=== PATIENT | male | born 1945 ===

== ENCOUNTER 2017-10-25 11:24 | Emergency (ER) | payer OTHER, MEDICARE ==
[2017-10-25 12:18] VITALS: BP 152/65; PULSE 67; TEMP 97.4; O2SAT 98
[2017-10-25 12:19] VITALS: BMI 27.9
--- NOTE | 2017-10-25 12:57 | ED PDOC ---
Lower Extremity Pain/Injury Time Seen by Provider: 10/25/17 12:29 Chief Complaint (Nursing): Trauma Chief Complaint (Provider): foot injury History Per: Patient History/Exam Limitations: no limitations Onset/Duration Of Symptoms: Days (10/22/17) Current Symptoms Are (Timing): Still Present Severity: Mild Pain Scale Rating Of: 7 Additional Complaint(s): 72 year old male presents to the ED for an evaluation of his left foot. Patient states he sustained an injury at work on October 22. Reports a pallet fell on his foot. He went to [facility] and they performed a xray which was negative. They were concerned he had compartment syndrome and patient was advised to visit the ED. He went to [facility] but was not evaluated so he came here today. Reports the pain is 7/10 and feels mild numbness on 3rd, 4th, 5th toes. Denies any other injuries or decreased range of motion. PMD: Non H Provider Past Medical History Reviewed: Historical Data, Nursing Documentation, Vital Signs Vital Signs: Last Vital Signs Temp 97.4 F L 10/25/17 12:17 Pulse 67 10/25/17 12:17 Resp BP 152/65 H 10/25/17 12:17 Pulse Ox 98 10/25/17 12:17 - Medical History PMH: Fractures (LEFT ANKLE WITH FIXATION) - Surgical History Surgical History: No Surg Hx - Family History Family History: States: Unknown Family Hx - Immunization History Hx Tetanus Toxoid Vaccination: No Hx Influenza Vaccination: Yes ("June 2016") Hx Pneumococcal Vaccination: No ("Unsure'') - Home Medications Home Medications: Ambulatory Orders Medication Instructions Recorded GlipiZIDE [Glucotrol] 10 mg PO DAILY 08/08/16 MetFORMIN [glucoPHAGE] 1,000 mg PO BID 08/08/16 Pioglitazone [Actos] 30 mg PO DAILY 08/08/16 levoFLOXacin [Levaquin] 500 mg PO DAILY #7 tab 08/16/16 - Allergies Allergies/Adverse Reactions: Allergies Allergy/AdvReac Type Severity Reaction Status Date / Time No Known Allergies Allergy Unverified 08/08/16 08:26 Review of Systems ROS Statement: Except As Marked, All Systems Reviewed And Found Negative Musculoskeletal: Positive for: Foot Pain (left; mild numbness on 3rd, 4th, 5th toes). Negative for: Other (decreased ROM, injuries) Physical Exam - Reviewed Nursing Documentation Reviewed: Yes Vital Signs Reviewed: Yes - Physical Exam Comments: GENERAL APPEARANCE: Patient is awake, alert, oriented x 3, in no acute distress. SKIN: Warm, dry; (-) cyanosis. LOWER EXTREMITY: (+) mild tenderness to palpation to the distal aspect of the 3rd, 4th, and 5th metatarsals. (+) Capillary refill less than 2 seconds. (+) sensation to the entire foot and all toes intact. (-) Swelling, (-) ecchymosis, (+) full range of motion. Ankle: (-) swelling, (-) tenderness, (+) full range of motion. Achilles tendon intact and nontender. CARDIOVASCULAR: (+) distal pulse 2+. NEUROLOGIC: (+) distal sensation. - ECG O2 Sat by Pulse Oximetry: 98 (RA) Pulse Ox Interpretation: Normal Medical Decision Making Medical Decision Making: Time: 1233 Initial Impression: left foot injury Initial Plan: --Acetaminophen 975mg PO --Foot Left 3 Views Routine [RAD] XR L foot: (+) fracture to the 4th and possibly 5th proximal phalanx, no dislocation, as read by PA. Diagnostic results discussed with the patient in great detail. Diagnosis of foot contusion and toe fracture discussed with the patient in great detail. Advised to elevate the foot and apply ice. Case was discussed with Podiatry, who will come and evaluate the patient. Patient seen and evaluated by podiatry resident, Dr. Brigida Celeste, who reviewed the XRs and agrees that the patient does not have compartment syndrome. Based on history, exam and diagnostic results plan will be for outpatient follow -up. Advised to follow up with workman's comp in 1-2 days without fail. Advised to take Tylenol for pain. Return to the emergency room at any time for any new or worsening symptoms. Patient states he fully agrees with and understands discharge instructions. States that he agrees with the plan and disposition. Verbalized and repeated discharge instructions and plan. I have given the patient opportunity to ask any additional questions. Scribe Attestation: Documented by Wandy Harp, acting as a scribe for Ilda Elkins PA-C Provider Scribe Attestation: All medical record entries made by the Scribe were at my direction and personally dictated by me. I have reviewed the chart and agree that the record accurately reflects my personal performance of the history, physical exam, medical decision making, and the department course for this patient. I have also personally directed, reviewed, and agree with the discharge instructions and disposition. Disposition - Clinical Impression Clinical Impression: Foot contusion, Toe fracture, left - Patient ED Disposition Is Patient to be Admitted: No Counseled Patient/Family Regarding: Studies Performed, Diagnosis, Need For Followup - Disposition Disposition: Routine/Home Disposition Time: 13:15 Condition: STABLE Additional Instructions: Thank you for letting us take care of you today. You were treated for foot contusion. The emergency medical care you received today was directed at your acute symptoms. Rest, ice and elevate your foot. Take [id number] Tylenol as needed for pain. It may take several days for your symptoms to resolve. Return to the Emergency Department if your symptoms worsen, do not improve, or if you have any other problems. Please follow up with [facility] physician in 2 days for re-evaluation and follow up. Bring any paperwork you were given at discharge with you along with any medications you are taking to your follow up visit. Our treatment cannot replace ongoing medical care by a primary care provider (PCP) outside of the emergency department. Thank you for allowing the [facility] team to be part of your care today. If you had an X-Ray: A Radiologist will review the ED reading if any change in treatment is needed we will contact you. 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
--- NOTE | 2017-10-25 18:01 | RAD ---
Date of service: 10/25/2017 PROCEDURE: Left Foot Radiographs. HISTORY: pain COMPARISON: None. FINDINGS: BONES: No evidence of acute displaced fracture nor dislocation. The osseous structures intact. JOINTS: Minimal hallux valgus deformity with slight overgrowth of the head of the 1st metatarsal and mild DJD 1st MTP joint. . There is also slight prominence of the medial soft tissues overlying the head of the metatarsal and 1st MTP joint. Extension deformities of the 2nd 3rd 4th and 5th proximal phalanges. SOFT TISSUES: Normal. OTHER FINDINGS: None. IMPRESSION: No evidence of acute displaced fracture nor dislocation. Mild hallux valgus deformity as above
--- NOTE | 2017-10-25 19:01 | CP.PCM.CON ---
History of Present Illness - History of Present Illness History of Present Illness: Podiatry Consult Note: Dr. Chambers 72 year old male with PMHx of DM was evaluated for left foot pain. Patient reports that he was at work when a heavy pallet fell on his foot. Reports that the injury occured on the . Reports that since then he was sent to [facility] where x-rays were taken. He was given a prescription to the ED concerning compartment syndrome. Reports that since the injury the pain has started getting better day by day and grades it as 6/10 today. Reports that it was swollen after the original injury but the swelling has gotten a lot better. Denies of taking any pain medications now. Denies of any tingling in his toes today. Denies of any other pedal complains at this time. No recent F/N/V/C/SOB/ CP/headache. PMHx: DM PSHx: Right ankle ORIF Allergies: N.K.D.A SHx: 1-2 cig a day; denies EtOH or illicit drug usage Review of Systems - Constitutional Constitutional: As Per HPI Past Patient History - Past Medical History & Family History Past Medical History?: Yes - Past Social History Smoking Status: Former Smoker - ENDOCRINE/METABOLIC Hx Diabetes Mellitus Type 2: Yes - MUSCULOSKELETAL/RHEUMATOLOGICAL Hx Fractures: Yes (LEFT ANKLE WITH FIXATION) - PSYCHIATRIC Hx Substance Use: No (Denied) - SURGICAL HISTORY Hx Surgeries: Yes Hx Orthopedic Surgery: Yes - ANESTHESIA Hx Anesthesia: Yes Hx Anesthesia Reactions: No Meds Allergies/Adverse Reactions: Allergies Allergy/AdvReac Type Severity Reaction Status Date / Time No Known Allergies Allergy Unverified 08/08/16 08:26 Physical Exam - Constitutional Appears: Well, Non-toxic, No Acute Distress - Extremities Exam Additional comments: Left LE focused exam VASC: DP/PT pulses are palpable 2/4, Cap refill time: < 3 sec to all digits, Temp gradient: warm to cool from proximal to distal, no pitting or non-pitting edema noted DERM: No open lesions, no erythema, no clinical suspicion of active infection NEURO: Protective sensation grossly intact ORTHO: minimal pain at the MTPJ during PROM, no pain at the MTPJ during AROM, pain on palpation at the bases of digits 3-5; no calf pain - Neurological Exam Neurological exam: Alert, Oriented x3 - Psychiatric Exam Psychiatric exam: Normal Affect, Normal Mood Results - Vital Signs Recent Vital Signs: Last Vital Signs Temp 97.4 F L 10/25/17 12:17 Pulse 67 10/25/17 12:17 Resp BP 152/65 H 10/25/17 12:17 Pulse Ox 98 10/25/17 13:35 Assessment & Plan - Assessment and Plan (Free Text) Assessment: 72 year old male was evaluated to 1). r/o compartment syndrome 2). possible base of the proximal phalanx fx digits 3-5 Plan: Patient seen and evaluated Discussed plan with attending Dr. Reyes Short reviewed X-rays of the left foot ordered/reviewed - questionable for non-displaced base of the proximal phalanx fx at digits 3- 5 Felipe splint Surgical shoe provided - educated patient to remain in surgical shoe at all time while weightbearing Educated of the RICE protocol Educated to take OTC pain medication if needed Educated to follow up in podiatry clinic Demonstrated verbal understanding of the plan Thank you for the podiatry consult and allowing to take part in patient care - Date & Time Date: 10/25/17 Time: 19:12
== END 2017-10-25 14:26 | disposition home or self-care (01) ==
LOC: H.ER 11:24
DX: S90.32XA Contusion of left foot, initial encounter (principal); S92.515A Nondisplaced fracture of proximal phalanx of left lesser toe(s), initial encounter for closed fracture; W20.8XXA Other cause of strike by thrown, projected or falling object, initial encounter; Z87.891 Personal history of nicotine dependence; E11.9 Type 2 diabetes mellitus without complications; Z79.84 Long term (current) use of oral hypoglycemic drugs